=== PATIENT | female | born 1980 | race Caucasian/White ===

== ENCOUNTER 2020-06-19 10:06 | Emergency (ER) | payer MEDICAID ==
--- NOTE | 2020-06-19 10:34 | EDM.PDOC ---
ED HPI GENERAL MEDICAL PROBLEM - General Chief Complaint: Respiratory Problem Stated Complaint: COVID SYMPTOMS Time Seen by Provider: 06/19/20 10:25 Source of Information: Reports: Patient, RN Notes Reviewed History Limitations: Reports: No Limitations - History of Present Illness INITIAL COMMENTS - FREE TEXT/NARRATIVE: 39-year-old female presents emergency department a complaint of runny nose, fever scratchy throat body aches and shortness of breath, she denies any exposure has not had a fever at home - Related Data Allergies Allergy/AdvReac Type Severity Reaction Status Date / Time No Known Allergies Allergy Verified 06/19/20 10:19 Home Meds: Home Meds NK [No Known Home Meds] 01/21/14 [History] Past Medical History - Past Health History Medical/Surgical History: Denies Medical/Surgical History Social & Family History - Tobacco Use Tobacco Use Status *Q: Current Every Day Tobacco User Years of Tobacco use: 20 Packs/Tins Daily: 0.5 - Caffeine Use Caffeine Use: Reports: Coffee, Soda, Tea - Recreational Drug Use Recreational Drug Use: No ED ROS GENERAL - Review of Systems Review Of Systems: See Below Constitutional: Reports: Other (Body aches). Denies: Fever, Chills HEENT: Reports: Throat Pain, Throat Swelling Respiratory: Reports: Shortness of Breath, Cough Cardiovascular: Reports: Dyspnea on Exertion GI/Abdominal: Reports: No Symptoms : Reports: No Symptoms ED EXAM, GENERAL - Physical Exam Exam: See Below Exam Limited By: No Limitations General Appearance: Alert, WD/WN, No Apparent Distress Eye Exam: Bilateral Eye: Normal Inspection Ears: Normal External Exam, Normal Canal, Hearing Grossly Normal, Normal TMs Nose: Normal Inspection, Normal Mucosa, No Blood Throat/Mouth: Normal Inspection, Normal Lips, Normal Teeth, Normal Gums, Normal Oropharynx, Normal Voice, No Airway Compromise Head: Atraumatic, Normocephalic Neck: Normal Inspection, Supple, Non-Tender, Full Range of Motion Respiratory/Chest: No Respiratory Distress, No Accessory Muscle Use, Chest Non- Tender, Wheezing Cardiovascular: Regular Rate, Rhythm, No Murmur Course - Vital Signs Last Recorded V/S: Last Vital Signs Temp 95.9 F L 06/19/20 10:24 Pulse 113 H 06/19/20 10:24 Resp 16 06/19/20 10:24 BP 119/65 06/19/20 10:24 Pulse Ox 97 06/19/20 10:24 - Orders/Labs/Meds Orders: Active Orders 24 hr Category Date Time Status RT Post Treatment Assessment [RC] Click to Edit Care 06/19/20 11:37 Active Chest 2V [CR] Stat Exams 06/19/20 10:32 Taken CORONAVIRUS COVID-19, CAIN Stat Lab 06/19/20 10:31 Ordered PROCALCITONIN [CHEM] Stat Lab 06/19/20 10:31 Received Isolation [COMM] Stat Oth 06/19/20 10:31 Ordered Labs: Laboratory Tests 06/19/20 06/19/20 06/19/20 Range/Units 10:31 10:31 10:31 WBC 11.5 H (4.5-11.0) K/uL RBC 4.64 (3.30-5.50) M/uL Hgb 13.8 D (12.0-15.0) g/dL Hct 41.5 (36.0-48.0) % MCV 89 (80-98) fL MCH 30 (27-31) pg MCHC 33 (32-36) % Plt Count 270 (150-400) K/uL Neut % (Auto) 81 H (36-66) % Lymph % (Auto) 8 L (24-44) % Blanco % (Auto) 10 H (2-6) % Eos % (Auto) 2 (2-4) % Baso % (Auto) 0 (0-1) % Sodium 137 L (140-148) mmol/L Potassium 4.1 (3.6-5.2) mmol/L Chloride 102 (100-108) mmol/L Carbon Dioxide 26 (21-32) mmol/L Anion Gap 13.1 (5.0-14.0) mmol/L BUN 14 (7-18) mg/dL Creatinine 0.8 (0.6-1.0) mg/dL Est Cr Clr Drug Dosing 79.65 mL/min Estimated GFR (MDRD) > 60 (>60) Glucose 98 (74-106) mg/dL Lactic Acid 0.6 (0.4-2.0) mmol/L Calcium 8.8 (8.5-10.1) mg/dL Total Bilirubin 0.4 (0.2-1.0) mg/dL Direct Bilirubin 0.18 (0.0-0.2) mg/dL Indirect Bilirubin 0.22 AST 14 L (15-37) U/L ALT 21 (12-78) U/L Alkaline Phosphatase 112 (46-116) U/L Lactate Dehydrogenase 135 (82-234) U/L C-Reactive Protein 1.40 H (0.0-0.3) mg/dL Total Protein 7.6 (6.4-8.2) g/dL Albumin 3.9 (3.4-5.0) g/dL Globulin 3.7 H (2.3-3.5) g/dL Albumin/Globulin Ratio 1.1 L (1.2-2.2) Meds: Medications Discontinued Medications Generic Name Dose Route Start Last Admin Trade Name Winter PRN Reason Stop Dose Admin Albuterol 1 gm 06/19/20 11:37 06/19/20 11:46 Ventolin Hfa INH 06/19/20 11:38 2 puff ONETIME ONE Administration Departure - Departure Time of Disposition: 11:52 Disposition: Home, Self-Care 01 Condition: Fair Clinical Impression: Viral syndrome - Discharge Information Instructions: Viral Respiratory Infection, [id number] Referrals: Rome Wilde [Primary Care Provider] - Forms: ED Department Discharge Additional Instructions: Continue to use your albuterol inhaler as needed for shortness of breath symptoms, your Covid test will be available next week we will contact you with results, please followup with your primary care provider in 3-5 days if not better, please call return to the emergency department with worsening of symptoms. Sepsis Event Note (ED) - Evaluation Sepsis Screening Result: No Definite Risk - Focused Exam Vital Signs: Vital Signs Temp Pulse Resp BP Pulse Ox 06/19/20 10:24 95.9 F L 113 H 16 119/65 97 06/19/20 10:19 95.9 F L 113 H 16 119/65 97 - My Orders Last 24 Hours: My Active Orders 06/19/20 10:31 CORONAVIRUS COVID-19, CAIN Stat PROCALCITONIN [CHEM] Stat Isolation [COMM] Stat 06/19/20 10:32 Chest 2V [CR] Stat 06/19/20 11:37 RT Post Treatment Assessment [RC] Click to Edit - Assessment/Plan Last 24 Hours: My Active Orders 06/19/20 10:31 CORONAVIRUS COVID-19, CAIN Stat PROCALCITONIN [CHEM] Stat Isolation [COMM] Stat 06/19/20 10:32 Chest 2V [CR] Stat 06/19/20 11:37 RT Post Treatment Assessment [RC] Click to Edit Plan: Assessment Acuity = acute Site and laterality = viral syndrome Etiology = unknown Manifestations = cough Location of injury = Home Lab values = CBC, CMP unremarkable LDH within normal limits lactic acid normal limits CRP slightly elevated 1.4 chest x-ray I did review films myself I cannot appreciate any acute process, the official read from radiology is pending, Covid is pending Plan Did provide her an albuterol inhaler which provided some relief she feels better with her dyspnea she will do self isolation at home Covid will be available next week. Follow-up primary care 3 to 5 days if not better This note was dictated using [employer] voice recognition software please call with any questions on syntax or grammar.
[2020-06-19] MEDS ORDERED: Albuterol 8 GM Inhaler INH ONE (11:37)
--- NOTE | 2020-06-20 10:02 | CR ---
CHEST: 2 view CLINICAL HISTORY:Shortness of breath COMPARISON:[facility] December 2013 FINDINGS: The heart size, pulmonary vascularity and hilar structures are normal. No infiltrate effusion or pneumothorax is seen. There is an old ninth rib fracture on the right IMPRESSION: No acute cardiopulmonary process.
== END 2020-06-19 11:59 | disposition home or self-care (01) ==
LOC: JP.ED 10:06
DX: B34.9 Viral infection, unspecified (principal); F17.210 Nicotine dependence, cigarettes, uncomplicated; Z20.828 Contact with and (suspected) exposure to other viral communicable diseases
CPT/HCPCS: 71046; 80048; 80076; 83605; 83615; 84145; 85025; 86140; 87635; 94640; 99285; A9270; 36415; U0002

== ENCOUNTER 2021-12-24 08:34 | Emergency (ER) | payer MEDICAID ==
[2021-12-24 10:14] LABS: CORONAVIRUS COVID-19 NAA POSITIVE (NEGATIVE)
== END 2021-12-24 10:27 | disposition home or self-care (01) ==
LOC: JP.ED 08:34
DX: U07.1 COVID-19 (principal); K02.9 Dental caries, unspecified; J11.1 Influenza due to unidentified influenza virus with other respiratory manifestations; Z72.0 Tobacco use
CPT/HCPCS: 0241U; 99282; 99283